=== PATIENT | male | born 1965 | race Asian ===

== ENCOUNTER 2018-12-15 05:19 | Inpatient (IN) ==
--- NOTE | 2018-11-21 16:48 | PAT Medication Instructions ---
Medication Instructions Date of Service November 21, 2018 Home Medications Medication Instructions Recorded oxycodone-acetaminophen [Percocet] 1 tab PO Q4H PRN #30 tab 05/18/18 etanercept 1 dose SUBCUT . WEDNESDAY sulindac 200 mg PO BID PRN oxycodone-acetaminophen [Percocet] 1 tab PO Q4H PRN ASK your surgeon for instructions sulindac 200 mg PO BID PRN ASK your prescriber and surgeon etanercept 1 dose SUBCUT . WEDNESDAY Take morning of surgery With a small sip of water, OTHERWISE NOTHING TO EAT OR DRINK AFTER MIDNIGHT: oxycodone-acetaminophen [Percocet] 1 tab PO Q4H PRN (if needed, may be taken up to four hours before surgery) Other Notes If you have any questions please call us at [phone] or [phone] or [phone] or [phone]
--- NOTE | 2018-11-22 14:26 | Anesthesiology Consultation ---
Date of Service November 22, 2018 Assessment & Plan (1) Encounter for pre-operative examination: Pending surgeon ordered PCP clearance. *Pt with ankylosing spondylitits, may be difficult spinal. Spinal vs GA discussed with patient at [facility]. Chart Review Chart Review: Acceptable Risk for Surgery (pending surgeon-ordered PCP clearance 11/23) and Patient seen in Pre Admission Testing Teaching & Discussion Instructed NPO after midnight before surgery, except medications with 15 cc of water. Medication instructions provided according to the [facility] guidelines. History Surgery Operation Date: 12/15/18 07:15 Proposed Procedures p Right Total Hip Arthroplasty - Dario Pastrana MD Height/Weight Height: 5 ft 6 in Weight: 67 kg Allergies Allergy/AdvReac Type Severity Reaction Status Date / Time No Known Allergies Allergy Unverified 11/18/18 14:51 Medications Home Medications Medication Instructions Recorded Confirmed Last Taken etanercept 1 dose SUBCUT . Wednesday05/17/18 11/18/18 05/13/18 sulindac 200 mg PO BID PRN 05/17/18 11/18/18 05/07/18 oxycodone-acetaminophen [Percocet] 1 tab PO Q4H PRN #30 tab 05/18/18 11/18/18 Unknown Past Medical History Medical History Ankylosing spondylitis Dr Hilario. Anxiety DJD (degenerative joint disease), multiple sites Depression Osteoarthritis Exercise / Class Metabolic Activity II 4-5 Yardwork/Stairs/Walk up hill (Limited by hip pain currently, but denies SOB/CP with 1 FOS) Past Surgical History Surgical History H/O total hip arthroplasty LEFT History of colonoscopy History of surgery on right wrist Past Anesthesia History No Hx of Anesthesia Complications and No Family Hx of Anesthesia Complications S/P ORIF R radial/ulnar fx 05/18/18 = LMA #5, atraumatic x 1 attempt. History of PONV No Hx of PONV and No Hx of Motion Sickness Social History Smoking Status: Former smoker tobacco type: cigarettes Do You Dip or Chew Tobacco: No Smoking End Date: QUIT 20 YEARS AGO Hx Alcohol Use: Yes Alcohol type: beer and wine alcohol intake frequency: a few times a month Hx Substance Use: No substance use type: does not use Review of Systems Pt denies any recent chest pain, shortness of breath, palpitations, cough, fever or URI. Physical Exam Vital Signs BP: 112/71 P: 64bpm SPO2: 97% RA T: 97.5 F R: 12 ENMT Mouth: no dental restorations, no chipped teeth and no loose teeth Thyromental Distance: > or= 3.5 Finger Breadths (4) Mallampati Class: I Neck normal visual inspection and + limited neck extension (very limited) Respiratory normal respiratory effort Auscultation: lungs clear to auscultation bilaterally Cardiovascular Rate/Rhythm: regular rate and regular rhythm Heart Sounds: no murmur Extremities: no edema Testing Laboratory Results 11/22/18 14:36 11/22/18 14:36 PT 10.7 Seconds (9.0-12.0) 11/22/18 14:36 INR 1.0 (0.9-1.1) 11/22/18 14:36 APTT 30.9 Seconds (21.0-31.0) 11/22/18 14:36 Urine Color Yellow 11/22/18 14:36 Urine Appearance Clear (Clear) 11/22/18 14:36 Urine pH 6.0 (4.5-7.5) 11/22/18 14:36 Ur Specific Sylvester 1.023 (1.000-1.030) 11/22/18 14:36 Urine Protein Negative (Negative) 11/22/18 14:36 Urine Glucose (UA) 1+ (Negative) H 11/22/18 14:36 Urine Ketones Negative (Negative) 11/22/18 14:36 Urine Nitrite Negative (Negative) 11/22/18 14:36 Ur Leukocyte Esterase Negative (Negative) 11/22/18 14:36 Blood Type A Positive 11/22/18 14:36 Antibody Screen NEGATIVE 11/22/18 14:36 11/22/18 14:36 Urine Culture - Final Urine,Clean Catch No growth - less than 1,000 colonies/mL. Electrocardiogram Date: 05/16/18 Findings: + NSR @ (87bpm) Chest X-Ray Date: 05/18/18 Findings: + NAD FINDINGS: The patient appears mildly hyperinflated. The heart is at the upper limits of normal in size. There is no failure. There is no focal pulmonary consolidation. There are no pleural effusions. There is a minor spinal scoliosis with possible ankylosis. Arthritic changes are present within the shoulders.
[2018-11-22 15:05] LABS: Basophils # (auto) 0.02 K/uL (0-0.2); Basophils % (auto) 0.4 %; Eosinophils # (auto) 0.13 K/uL (0-0.5); Eosinophils % (auto) 2.4 %; Hemoglobin 13.2 g/dL (14.0-18.0); Immature Granulocytes # (auto) 0.01 K/uL (0.00-0.02); Immature Granulocytes % (auto) 0.2 %; Lymphocytes # (auto) 1.47 K/uL (1.2-3.4); Mean Corpuscular Hemoglobin 29.1 pg (25-34); Mean Corpuscular Volume 88.3 fL (80-100); Mean Platelet Volume 9.2 fL (7.4-10.4); Monocytes # (auto) 0.46 K/uL (0.11-0.59); Monocytes % (auto) 8.5 %; Neutrophils # (auto) 3.35 K/uL (1.4-6.5); Neutrophils % (auto) 61.5 %; Platelet Count 245 K/uL (130-400); RDW Coefficient of Variation 12.5 % (11.5-14.5); RDW Standard Deviation 40.2 fL (36.4-46.3); Red Blood Count 4.53 M/uL (4.7-6.1); White Blood Count 5.44 K/uL (4.8-10.8)
[2018-11-22 15:06] LABS: Appearance Urine Clear (Clear); Bilirubin Urine Negative (Negative); Blood Urine Negative (Negative); Color Urine Yellow; Glucose Urine UA 1+ (Negative); Ketones Urine Negative (Negative); Leukocyte Esterase Urine Negative (Negative); Nitrite Urine Negative (Negative); Protein Urine Negative (Negative); Specific Gravity Urine 1.023 (1.000-1.030); Urobilinogen Urine Negative (Negative)
[2018-11-22 15:16] LABS: Partial Thromboplastin Ratio 1.1; Partial Thromboplastin Time 30.9 Seconds (21.0-31.0); Prothrombin Time 10.7 Seconds (9.0-12.0)
[2018-11-22 16:11] LABS: Albumin Level 3.6 gm/dl (3.4-5.0); BUN Creatinine Ratio 18.9 (10-20); Calcium 9.1 mg/dl (8.5-10.1); Creatinine Clr Calc Pharmacy 80.2 ml/min; Est GFR (African American) 104.8; Est GFR (Non-African American) 90.4; Potassium 3.7 mmol/L (3.5-5.1)
[2018-11-22 16:14] LABS: Bilirubin,Total 0.4 mg/dl (0.2-1); Globulin 3.7 gm/dl (2.5-4.0); Total Protein 7.3 gm/dl (6.4-8.2)
--- NOTE | 2018-11-23 14:19 | History & Physical Report ---
Date of Service November 23, 2018 Assessment & Plan (1) Primary localized osteoarthrosis of right hip: DIAGNOSIS: Right hip osteoarthritis. PROCEDURE: Right total hip arthroplasty. PLAN: The patient is scheduled to undergo this procedure with Dr. Dario Pastrana at the [facility] as an inpatient on 12/15/2018. Risks and complications of the procedure such as infection, bleeding, pain, scarring, nerve and blood vessel damage, weakness, wound problems, stiffness, incomplete relief of symptoms, hardware failure, hardware loosening, wear, fracture, tendon or ligament injury, dislocation, leg length inequality, blood clots, embolism, heart attack, stroke and were explained to the patient at his visit today by Dr. Pastrana. Informed consent to perform the procedure was obtained. We will also need to obtain preoperative medical clearance from the patient's primary care provider along with a CBC with differential, complete metabolic panel, PT, INR, blood type and screen, urinalysis, urine culture, EKG, hemoglobin A1c and a nasal culture for MRSA. The patient states he will obtain this necessary testing prior to his preanesthesia appointment at the hospital this afternoon. The patient was advised he will be prescribed a narcotic pain medication along with an anti-inflammatory medication upon discharge from the hospital. I also instructed him that we will have him on a baby aspirin twice daily for 30 days postoperatively for DVT prophylaxis and recommend the use of extra strength Tylenol in conjunction with the opioid analgesic that he will be prescribed. PDMP was checked and no red flags were raised that would prevent us from prescribing this medication. The patient was provided with an order to obtain a walker during today's visit. I also instructed him about purchasing a hip kit from either [employer], [employer] or online from [employer]. Advised him that he will often sleep with an abduction pillow for 6 weeks postoperatively to prevent any type of injury, dislocation to the surgical hip. The patient will also use PAUL stockings in combination with the aspirin for DVT prophylaxis. He states that he will most likely obtain in-home therapy for the first 2 weeks postoperatively and I advised him that I will provide him an order for outpatient physical therapy with rehab protocol at his 2-week followup with myself. The patient was also given information about lectures offered by [facility] in regards to joint replacement surgery. I have reeducated him about the use of antibiotics post-surgically before dental appointments. I also went over the discharge planning instructions and the hip arthroplasty packet. The patient states that he does not need a handicap placard paperwork because he already has one for his vehicle. The patient is very appreciative of the care he received in our clinic today, verbalized understanding of all information provided and states if he has questions or concerns prior to his procedure, he will contact the clinic accordingly. History of Present Illness Chief Complaint: CHIEF COMPLAINT: Right hip pain. Primary Care Provider: NO PCP HISTORY OF PRESENT ILLNESS: This 53-year-old male presents to clinic today for his preoperative history and physical. The patient complains of persistent right hip pain that has been ongoing for the past few years. The patient states that it is affecting his activities of daily life. The pain increases with standing. He denies any injury to the hip. He states he did have a left total hip arthroplasty performed in [place] approximately 8 years ago. He feels that it may have something to do with his gait abnormality due to having severe ankylosing spondylitis affecting his spine. The patient denies any numbness or tingling in the right lower extremity, but states that his range of motion is significantly limited. PAST SURGICAL HISTORY: Right total hip arthroplasty, right wrist open reduction internal fixation. PAST MEDICAL HISTORY: Ankylosing spondylitis, anxiety, depression, spine and neck and back problems. FAMILY HISTORY: Noncontributory. ALLERGIES: The patient has no known drug allergies. CURRENT MEDICATIONS USED: Enbrel prefilled syringe 50 mg per mL subcutaneous solution 1 mL subcutaneously every 7 days and sulindac 200 mg oral tablet 1 tab twice daily as needed for arthritis. SOCIAL HISTORY: The patient states that he was a pack per day smoker for 10 years but quit 20 years ago. He states that he consumes between 3 and 4 alcoholic beverages per week, but denies any illicit drug use. Allergies Allergy/AdvReac Type Severity Reaction Status Date / Time No Known Allergies Allergy Unverified 11/18/18 14:51 Home Medications Home Medications Medication Instructions Recorded Confirmed Type etanercept 1 dose SUBCUT . Wednesday05/17/18 11/18/18 History sulindac 200 mg PO BID PRN 05/17/18 11/18/18 History oxycodone-acetaminophen [Percocet] 1 tab PO Q4H PRN #30 tab 05/18/18 11/18/18 Rx Past Med/Surg History Medical History Ankylosing spondylitis Dr Hilario. Anxiety DJD (degenerative joint disease), multiple sites Depression Osteoarthritis Surgical History H/O total hip arthroplasty LEFT History of colonoscopy History of surgery on right wrist Social History Preferred Language: Slovenian Communication Ability: Effective Aquatic Physiotherapist Required: No Beliefs That Will Affect Care: None Current Living Situation: Family Feels Safe at Home: Yes Smoking Status: Former smoker Tobacco Type: cigarettes ; Second Hand Exposure: Yes ; Hx Alcohol Use: Yes Alcohol type: beer and wine Hx Substance Use: No Review of Systems All systems reviewed & are unremarkable except as noted in HPI & below Physical Exam Physical Exam: PHYSICAL EXAMINATION: Skin: The patient's skin is normal in appearance. No skin lesions or discharge. Eyes: Pupils are equal and react to light and accommodating. Extraocular movements are intact. Throat: Posterior pharynx is clear with absence of edema, erythema or exudate. Cardiovascular exam: The patient has a regular rate and rhythm, no murmurs or gallops appreciated. Lungs: Auscultation of lung gillespie reveals clear breath sounds throughout with no wheezing or rhonchi. Abdomen is nonobese, nondistended, nontender with normoactive bowel sounds. Extremities: Right hip flexion is 95 degrees. At 90 degrees of flexion, the patient is able to internally rotate to 5 degrees and externally rotate to 40 degrees. Stinchfield test and George's tests are both positive. DANIAL and FADIR tests are positive. The patient has some crepitation with range of motion. Tenderness over the anterior groin. Otherwise, he is neurovascularly intact in the right lower extremity. Neurological exam: Cranial nerves 2-12 are intact with no motor or sensory deficit. Psychological/general exam: The patient is alert and oriented x3 with proper grooming and hygiene. Results & Data Laboratory Results Laboratory Results - last 48 hr 11/22/18 11/22/18 11/22/18 14:36 14:36 14:36 WBC 5.44 RBC 4.53 L Hgb 13.2 L Hct 40.0 L MCV 88.3 MCH 29.1 MCHC 33.0 RDW Std Deviation 40.2 RDW Coeff of Flakita 12.5 Plt Count 245 MPV 9.2 Immature Gran % (Auto) 0.2 Neut % (Auto) 61.5 Lymph % (Auto) 27.0 Marshall % (Auto) 8.5 Eos % (Auto) 2.4 Baso % (Auto) 0.4 Immature Gran # (Auto) 0.01 Neut # (Auto) 3.35 Lymph # (Auto) 1.47 Marshall # (Auto) 0.46 Eos # (Auto) 0.13 Baso # (Auto) 0.02 PT 10.7 INR 1.0 APTT 30.9 PTT Ratio 1.1 Sodium 141 Potassium 3.7 Chloride 107 Carbon Dioxide 29 Anion Gap 5.0 BUN 18 Creatinine 0.95 Est Cr Clr Drug Dosing 80.2 Est GFR ( Amer) 104.8 Est GFR (Non-Af Amer) 90.4 BUN/Creatinine Ratio 18.9 Glucose 109 H Calcium 9.1 Total Bilirubin 0.4 AST 12 L ALT 23 Alkaline Phosphatase 93 Total Protein 7.3 Albumin 3.6 Globulin 3.7 Albumin/Globulin Ratio 1.0 Urine Color Urine Appearance Urine pH Ur Specific Keiser Urine Protein Urine Glucose (UA) Urine Ketones Urine Blood Urine Nitrite Urine Bilirubin Urine Urobilinogen Ur Leukocyte Esterase Nasal Screen MRSA (PCR) Blood Type Antibody Screen 11/22/18 11/22/18 11/22/18 14:36 14:36 14:36 WBC RBC Hgb Hct MCV MCH MCHC RDW Std Deviation RDW Coeff of Flakita Plt Count MPV Immature Gran % (Auto) Neut % (Auto) Lymph % (Auto) Marshall % (Auto) Eos % (Auto) Baso % (Auto) Immature Gran # (Auto) Neut # (Auto) Lymph # (Auto) Marshall # (Auto) Eos # (Auto) Baso # (Auto) PT INR APTT PTT Ratio Sodium Potassium Chloride Carbon Dioxide Anion Gap BUN Creatinine Est Cr Clr Drug Dosing Est GFR ( Amer) Est GFR (Non-Af Amer) BUN/Creatinine Ratio Glucose Calcium Total Bilirubin AST ALT Alkaline Phosphatase Total Protein Albumin Globulin Albumin/Globulin Ratio Urine Color Yellow Urine Appearance Clear Urine pH 6.0 Ur Specific Keiser 1.023 Urine Protein Negative Urine Glucose (UA) 1+ H Urine Ketones Negative Urine Blood Negative Urine Nitrite Negative Urine Bilirubin Negative Urine Urobilinogen Negative Ur Leukocyte Esterase Negative Nasal Screen MRSA (PCR) Negative Blood Type A Positive Antibody Screen NEGATIVE
[2018-12-15] MEDS ORDERED: SCOPOLAMINE 1.5 MG TDSY TD SCH (06:00)
[2018-12-15] MEDS ORDERED: LR 60ML/HR IV SCH (06:00)
[2018-12-15] MEDS ORDERED: ACETAMINOPHEN 500 MG TAB PO SCH (06:00)
[2018-12-15] MEDS ORDERED: ROPIVACAINE 0.5% HCL/PF 150 MG, BUPIVACAINE 0.5% MPF 30 ML, EPINEPHrine 0.15 MG, Ketoro... INFIL SCH (06:00)
[2018-12-15] MEDS ORDERED: FAMOTIDINE 20 MG TAB PO SCH (06:00)
[2018-12-15] MEDS ORDERED: dexAMETHasone 4 MG TAB PO SCH (06:00)
[2018-12-15] MEDS ORDERED: TRANEXAMIC ACID 1,000 MG **IV Pre-op IV SCH (06:00)
[2018-12-15] MEDS ORDERED: CeleBREX 200 MG CAP PO SCH (06:00)
[2018-12-15] MEDS ORDERED: TRAMADOL HCL 50 MG TABLET PO SCH (06:00)
[2018-12-15] MEDS ORDERED: CEFAZOLIN 2000MG 2,000 MG/15 ML SYR IV SCH (06:00)
[2018-12-15] MEDS ORDERED: LR 500ML BOLUS, THEN 15ML/HR IV SCH (06:00)
[2018-12-15] MEDS ORDERED: METOCLOPRAMIDE HCL 10 MG TABLET PO SCH (06:00)
[2018-12-15] MEDS ORDERED: BUPIVACAINE 0.5 % 5 MG/1 ML PF 10ML VIAL ONE (06:29)
[2018-12-15] MEDS ORDERED: TRANEXAMIC ACID 1,000 MG **IV Intra-op IV SCH (06:30)
--- NOTE | 2018-12-15 06:39 | History & Physical Bridge Note ---
Date of Service December 15, 2018 History & Physical Bridge Note I have examined the patient, reviewed the History & Physical and in the interval since the performance of the History & Physical I have noted the following changes of clinical significance: no changes noted
[2018-12-15] MEDS ORDERED: MIDAZOLAM HCL 1 MG/ML 2ML VIAL ONE ×2 (06:40→06:52)
[2018-12-15] MEDS ORDERED: fentaNYL citrate 100 MCG/2 ML VIAL ONE ×2 (06:40→06:52)
[2018-12-15] MEDS ORDERED: ORTHO JOINT ANESTHETIC ONE (06:55)
[2018-12-15] MEDS ORDERED: CISATRACURIUM BESYLATE IV SOLN 2 MG/ML 10 ML VIAL IV ONE (07:46)
[2018-12-15] MEDS ORDERED: PROPOFOL IV EMULSION 10 MG/ML 20 ML VIAL IV ONE (07:46)
[2018-12-15] MEDS ORDERED: LIDOCAINE HCL 2% 2 ML VIAL/AMP(20MG/ML) INFIL ONE (07:46)
[2018-12-15] MEDS ORDERED: SUCCINYLCHOLINE CHLORIDE 20 MG/ML 10 ML VIAL ONE (08:10)
[2018-12-15] MEDS ORDERED: GLYCOPYRROLATE 0.2 MG/ML VIAL ONE (08:11)
[2018-12-15] MEDS ORDERED: NEOSTIGMINE METHYLSULFATE 5 MG/5 ML SYR ONE (08:11)
[2018-12-15] MEDS ORDERED: ePHEDrine sulfate 50 MG/ML AMP IV PRN (08:53)
[2018-12-15] MEDS ORDERED: ATROPINE SULFATE 0.1 MG/ML 10ML SYR IV PRN (08:53)
[2018-12-15] MEDS ORDERED: HYDROmorphone INJ 0.5 MG/0.5 ML SYR IV PRN ×2 (08:54→09:26)
[2018-12-15] MEDS ORDERED: TAMSULOSIN HCL 0.4 MG CAP PO PRN (09:26)
[2018-12-15] MEDS ORDERED: ONDANSETRON INJ 2 MG/ML 2 ML VIAL IV PRN (09:26)
[2018-12-15] MEDS ORDERED: DiphenhydrAMINE HCL 50 MG/ML VIAL IV PRN (09:26)
[2018-12-15] MEDS ORDERED: MAGNESIUM HYDROXIDE SUSP 30 ML UDC PO PRN (09:26)
[2018-12-15] MEDS ORDERED: OXYCODONE HCL IR 5 MG TAB (IMMEDIATE RELEASE) PO PRN (09:26)
[2018-12-15] MEDS ORDERED: METOCLOPRAMIDE HCL INJ 5 MG/ML 2 ML VIAL IV PRN (09:26)
[2018-12-15] MEDS ORDERED: NALOXONE HCL 0.4 MG/1 ML VIAL/CARP IV PRN (09:26)
[2018-12-15] MEDS ORDERED: ALUMINUM/MAGNESIUM SUSP 30 ML UDC PO PRN (09:26)
[2018-12-15] MEDS ORDERED: BISACODYL 10 MG SUPP PR PRN (09:26)
--- NOTE | 2018-12-15 09:26 | Operative Report ---
Post Operative Report Pre & Post Diagnosis Operation Date: 12/15/18 07:15 Pre-Op Diagnosis: Right Hip Arthritis Post-Op Diagnosis: Right Hip Arthritis Procedure Operation Date: 12/15/18 07:15 Actual Procedures p Right Total Hip Arthroplasty(Right) - Dario Pastrana MD Surgeon Dario Pastrana MD Over Hauler Helper MD Rudi; PADMINI Juan PA-C Estimated Blood Loss 250 Findings Consistent with Post-Op Diagnosis Specimens As per the Op notes Complications none Disposition Accompanied Patient To Recovery: Yes Disposition: Recovery Room Indications 53/M with chronic R hip pain and end stage arthritis of hip joint Description of Procedure Lateral decubitus position, standard prep and drape, time out for patient safety, uncemented THR right hip through Carvalho's approach. Please see Dr Pastrana's procedure notes for specific details. I was present throughtout the case, assisted wound closure and transferred the patient to PACU in stable condition. I attest to the content of the Intraoperative Record and any orders documented therein. Any exceptions are noted below.
--- NOTE | 2018-12-15 09:27 | Operative Report ---
Post Operative Report Pre & Post Diagnosis Operation Date: 12/15/18 07:15 Pre-Op Diagnosis: Right Hip Arthritis Post-Op Diagnosis: Right Hip Arthritis Procedure Operation Date: 12/15/18 07:15 Actual Procedures p Right Total Hip Arthroplasty(Right) - Dario Pastrana MD Surgeon Dario Pastrana MD Opto Mechanical Technician Se Grijalva MD; Rach Juan PA-C Estimated Blood Loss 250 Findings Consistent with Post-Op Diagnosis Specimens femoral head Complications none Disposition Accompanied Patient To Recovery: Yes Disposition: Recovery Room Description of Procedure I was present during the entire procedure assisting with wound closure and dressing application. Please see Dr. Pastrana procedure note for specifics of the case. I attest to the content of the Intraoperative Record and any orders documented therein. Any exceptions are noted below.
--- NOTE | 2018-12-15 09:28 | Operative Report ---
DATE OF OPERATION: 12/15/2018 PREOPERATIVE DIAGNOSIS: Right hip osteoarthritis in the setting of ankylosing spondylitis. POSTOPERATIVE DIAGNOSIS: Right hip osteoarthritis in the setting of ankylosing spondylitis. OPERATIONS PERFORMED: Right total hip arthroplasty. A 22 modifier should be added due to the increased complexity of the case secondary to ankylosing spondylitis and extensive acetabular osteophytes SURGEON: Dario Pastrana MD PRESS TENDER: Bernadine Juan PA-C and Se Grijalva MD ESTIMATED BLOOD LOSS: 250 mL. IV FLUIDS: 2000 mL crystalloid. SPECIMENS: Femoral head. COMPLICATIONS: None. IMPLANTS: 1. DePuy [place] Gription 58 mm outer diameter cup with a 6.5 x 25 mm cancellous bone screw. 2. DePuy [place] Ultrex polyethylene liner for a 36-mm femoral head. 3. DePuy [place] size 7 high offset stem. 4. Biolox delta ceramic femoral head, 36 mm outer diameter, +1.5 offset. INDICATIONS: Mr. Andion is a 53-year-old gentleman with a medical history significant for ankylosing spondylitis. He underwent a left total hip arthroplasty when he lived in [place] 8 years ago with a good result. He is now having right hip pain that has been refractory to conservative management. I had a long discussion with him about the risks and benefits of surgery, alternatives to surgery and expected outcomes. After reviewing all these, he elected to proceed with surgery. All questions were answered. Informed consent was signed. OPERATIVE FINDINGS: The patient had severe osteoarthritis of the femoral head and acetabulum with extensive osteophyte formation of the rim of the acetabulum which were removed. A total hip arthroplasty was performed through a posterior approach using a ceramic on polyethylene bearing surface. DESCRIPTION OF OPERATION: The patient was identified in the preoperative holding area where his surgical site was marked. He was not a candidate for a spinal because of his ankylosing spondylitis and was therefore brought back to the main operating room, where he was placed on the operating room table and general anesthesia was administered. He was moved in lateral decubitus position. All bony prominences were padded. Perioperative antibiotics were administered. He was prepped and draped in normal sterile fashion. Prior to incision, a multidisciplinary timeout was called. All in the room were in agreement. We began by making a 12 cm long incision for a posterior approach to the hip. We dissected through subcutaneous tissues to the level of fascia. Fascia was incised in line with the incision. Charnley bow was placed. Trochanteric bursitis was excised. The quadratus femoris, piriformis and short external rotators of the hip were dissected subperiosteally off the posterior aspect of the femur to expose the capsule. A box cut was made in the capsule. The femoral head was dislocated. We measured his offset from the lesser trochanter to center femoral head at 55 mm. We then made our femoral neck cut at 10 mm, which was our preoperative template. We then exposed the acetabulum. The labrum was sharply excised with a knife. Notably, this was actually sitting about 1 cm inside of the ossified acetabular rim. We then attempted to expose the cotyloid fossa, but he had severe medial osteophyte formation that prevented this. We therefore started with our medializing reamer. This was a size 50. This removed our medial osteophyte and exposed our cotyloid fossa which was then removed with electrocautery. Next, we reamed up all the way to a size 58 mm cup. This gave us good bleeding bony surface. We then irrigated out the cup and opened up our 58 mm [place] Gription cup. This was impacted down into position with 25 degrees of anteversion and 40 degrees of lateral opening. A single cancellous bone screw was placed up into the ilium, 25 mm in length. Excellent fixation was obtained. Next, the polyethylene liner was placed down into the cup for a 36-mm femoral head and was impacted into position. We checked to ensure the locking mechanism engaged, which it had. At this point, we spent the next 10 or 15 minutes removing osteophytes along the margin of the acetabular rim using a curved osteotome and rongeur. Again, these were extensive involving the superior, anterior, posterior and inferior acetabular rim. Once these were removed, there was no chance of bony impingement on the femoral neck. Next, the femoral neck was exposed. The lateral capsule was excised and the freemanie cutter was used followed by the intramedullary canal finder. He was reamed up to a size 7 reamer. We then broached him up to a size 7 which gave us a good torsional stability. We trialled him with a high offset neck and +1.5 mm head. This reproduced his offset, measured at approximately 56 mm. We relocated the hip and his shuck test was about 1-2 mm, which was appropriate. His leg lengths were symmetric. He had no impingement in extension and external rotation. He was stable in the sleeper position. At 90 degrees of hip flexion, he could be internally rotated 55 degrees before levering out of the cup. I was very happy with this stability exam. Therefore, the trial components were removed from the femur. The canal was irrigated and dried. We then opened up the real size 7 [place] high offset stem and impacted this into position. It sat at approximately the same level as the broach and therefore the +1.5 mm ceramic femoral head was opened up and tapped down on to the trunnion, which had been cleaned and dried. The hip was then atraumatically reduced. Betadine was used to irrigate out the wound and was allowed to sit for 3 minutes. We injected our periarticular injection cocktail and then repaired the capsule, piriformis and short external rotators using #2 Vicryl through 2 bone tunnels in the posterior aspect of the greater trochanter. The Charnley was removed. The fascia was run with a looped #1 PDS. Deep subcutaneous layers were closed with a running #1 PDS. Dermal layer was closed with 2-0 Vicryl. A ZipLine was used for the skin. A Silverlon dressing was then placed. The patient was then rolled supine, placed in an abduction pillow, awoken from anesthesia and transferred to recovery room in stable condition. POSTOPERATIVE COURSE: The patient will be admitted overnight for pain control and monitoring. We will check his H and H in the morning. He will need to be on posterior hip precautions. He will be on aspirin for DVT prophylaxis. At the recommendation of his pamphlet distributor, his Enbrel was held for 2 weeks before the procedure and will be held for 2 weeks after the surgery to minimize wound healing complications. I attest to the content of the Intraoperative Record and any orders documented therein. Any exceptions are noted below. CANDY
--- NOTE | 2018-12-15 09:30 | Post Operative Brief Note ---
Immediate Post Op Note v1 Date of Surgery December 15, 2018 Pre & Post Diagnosis Operation Date: 12/15/18 07:15 Pre-Op Diagnosis: Right Hip Arthritis Post-Op Diagnosis: Right Hip Arthritis Procedure Operation Date: 12/15/18 07:15 Actual Procedures p Right Total Hip Arthroplasty(Right) - Dario Pastrana MD Surgeon Dario Pastrana MD Fuel Attendant Se Grijalva MD; Rach Juan PA-C Estimated Blood Loss 250 Findings Consistent with Post-Op Diagnosis Fluids 2000 Anesthesia Type General Complications none Disposition Accompanied Patient To Recovery: No Disposition: Recovery Room
[2018-12-15] MEDS ORDERED: OXYCODONE/ACETAMINOPHEN 5mg/325mg TAB PO PRN (09:32)
[2018-12-15] MEDS ORDERED: SULINDAC 200 MG TAB PO PRN (09:32)
--- NOTE | 2018-12-15 10:00 | XRay Report ---
AP PELVIS, CROSSTABLE LATERAL RIGHT HIP History: Right total hip arthroplasty. Degenerative arthritis. Postop. FINDINGS: The patient is status post a right total hip arthroplasty. The hardware is intact. No fract ure or dislocation. Evidence for prior left total hip arthroplasty. IMPRESSION: Right total hip arthroplasty. No evidence for hardware complication Electronically signed by: Giovani Cano M.D. 12/15/2018 9:58 AM
--- NOTE | 2018-12-15 10:25 | Anesthesiology Progress Note ---
Date of Service December 15, 2018 Anesthesia Post Procedure Vital Signs Vital Signs: Temp Pulse Pulse Resp BP Pulse Ox 12/15/18 10:15 64 15 114/71 100 12/15/18 10:05 73 16 132/63 100 12/15/18 09:55 36.1 C L 68 17 119/74 100 12/15/18 09:45 36.1 C L 64 13 120/66 12/15/18 09:39 36.1 C L 61 12 123/74 12/15/18 05:52 36.7 C 78 18 118/78 96 Pain Intensity Right Hip: Pain Intensity: 2 Transfer of Care Handoff Completed per policy Notes Mental Status: alert / awake / arousable Patient Amnestic to Procedure: Yes Nausea / Vomiting: adequately controlled Pain: adequately controlled Airway Patency, RR, SpO2: stable & adequate BP & HR: stable & adequate Hydration State: stable & adequate Anesthetic Complications: no major complications apparent
[2018-12-15] MEDS: KETOROLAC 30 MG/ML VIAL IV SCH ×2 (12:50→18:30)
[2018-12-15] MEDS: CEFAZOLIN 2000MG 2,000 MG/15 ML SYR IV SCH ×2 (14:50→22:37)
[2018-12-15] MEDS: ACETAMINOPHEN 500 MG TAB PO SCH ×2 (14:50→21:31)
[2018-12-15] MEDS: SODIUM CHLORIDE 0.9% 1000ML 1,000 ML IV SCH (15:11)
[2018-12-15] MEDS ORDERED: TRANEXAMIC ACID 1,000 MG in 0.9 % SODIUM CHLORIDE 100 ML IV SCH (15:26)
[2018-12-15] MEDS: CHECK SCOPOLAMINE PATCH PLACEMENT SCH (18:30)
[2018-12-15] MEDS ORDERED: SENNA 8.6 MG TAB PO SCH (21:00)
[2018-12-15] MEDS: DOCUSATE SODIUM 100 MG CAP PO SCH (21:32)
[2018-12-15] MEDS: ASPIRIN 81 MG ECTAB PO SCH (21:33)
[2018-12-16] MEDS: KETOROLAC 30 MG/ML VIAL IV SCH ×2 (00:06→05:59)
[2018-12-16] MEDS: SODIUM CHLORIDE 0.9% 1000ML 1,000 ML IV SCH (00:07)
[2018-12-16] MEDS: CHECK SCOPOLAMINE PATCH PLACEMENT SCH (00:07)
[2018-12-16] MEDS: ACETAMINOPHEN 500 MG TAB PO SCH (05:59)
[2018-12-16 07:03] LABS: Basophils # (auto) 0.01 K/uL (0-0.2); Basophils % (auto) 0.1 %; Hematocrit (blood only) 32.1 % (42-52); Hemoglobin 10.5 g/dL (14.0-18.0); Immature Granulocytes # (auto) 0.04 K/uL (0.00-0.02); Immature Granulocytes % (auto) 0.3 %; Lymphocytes # (auto) 1.13 K/uL (1.2-3.4); Lymphocytes % (auto) 7.5 %; Mean Corpuscular Hemoglobin 28.2 pg (25-34); Mean Corpuscular Hgb Conc 32.7 g/dL (32-36); Mean Corpuscular Volume 86.3 fL (80-100); Monocytes # (auto) 1.15 K/uL (0.11-0.59); Monocytes % (auto) 7.6 %; Neutrophils # (auto) 12.77 K/uL (1.4-6.5); Neutrophils % (auto) 84.5 %; Platelet Count 213 K/uL (130-400); RDW Coefficient of Variation 12.6 % (11.5-14.5); RDW Standard Deviation 39.9 fL (36.4-46.3); Red Blood Count 3.72 M/uL (4.7-6.1)
[2018-12-16 07:41] LABS: Creatinine Clr Calc Pharmacy 74.7 ml/min; Est GFR (African American) 96.1; Est GFR (Non-African American) 82.9
[2018-12-16] MEDS ORDERED: dexAMETHasone 4 MG TAB PO SCH (08:00)
--- NOTE | 2018-12-16 08:05 | Anesthesiology Progress Note ---
Date of Service December 16, 2018 Anesthesia Post Procedure Vital Signs Vital Signs: Temp Pulse Pulse Resp BP Pulse Ox 12/16/18 07:26 36.5 C 63 18 100/62 98 12/16/18 03:50 36.4 C L 82 18 98/60 L 98 12/15/18 23:10 36.6 C 71 16 92/54 L 98 12/15/18 19:55 36.9 C 71 18 94/54 L 98 12/15/18 15:24 36.6 C 71 16 103/65 95 12/15/18 13:51 80 18 119/69 97 12/15/18 12:59 79 18 104/67 95 12/15/18 11:58 77 18 110/68 96 12/15/18 11:30 74 18 112/69 95 12/15/18 11:00 36.5 C 66 14 106/69 100 12/15/18 10:45 36.4 C L 62 14 105/65 98 12/15/18 10:35 36.4 C L 60 15 113/72 97 12/15/18 10:25 36.4 C L 61 14 119/73 100 12/15/18 10:15 64 15 114/71 100 12/15/18 10:05 73 16 132/63 100 12/15/18 09:55 36.1 C L 68 17 119/74 100 12/15/18 09:45 36.1 C L 64 13 120/66 100 12/15/18 09:39 36.1 C L 61 12 123/74 100 Pain Intensity Right Hip: Pain Intensity: 2 Notes Mental Status: alert / awake / arousable and participated in evaluation Patient Amnestic to Procedure: Yes Nausea / Vomiting: adequately controlled Pain: adequately controlled Airway Patency, RR, SpO2: stable & adequate BP & HR: stable & adequate Hydration State: stable & adequate Anesthetic Complications: no major complications apparent and Pt Satisfied with anesthetic care
[2018-12-16] MEDS: ASPIRIN 81 MG ECTAB PO SCH (08:14)
[2018-12-16] MEDS: DOCUSATE SODIUM 100 MG CAP PO SCH (08:15)
[2018-12-16] MEDS ORDERED: MULTIVITAMIN TAB PO SCH (09:00)
--- NOTE | 2018-12-16 11:14 | Orthopedic Progress Note ---
Date of Service December 16, 2018 Assessment & Plan (1) S/P total hip arthroplasty: Reviewed Total Hip precautions PT/OT this AM DVT prophy with Aspirin and TEDs Ice with EZ wrap Pain control with PO meds Abduction pillow use for 6 wks post op F/u at [facility] as previously scheduled With any questions call Subjective Patient is day 1 s/p Right total hip arthroplasty. Doing very well. Just finished PT/OT. Ambulating well with walker assistance. Minimal pain at incision site. Denies CP, SOB, nausea, vomiting, fever, chills, sweats or lethargy. Patient states that he will be ready to go home after lunch with in- home therapy. Review of Systems Review of Systems: All systems reviewed & are unremarkable except as noted in HPI & below Physical Exam Physical Exam: Right hip: dressing clean, dry and intact. Minimal TTP around incision site. Able to perform SLRT. Minimal pain with very light passive internal and external rotation. Calf soft and supple. NV intact in entire Rt LE. Minimal edema. No erythema, ecchymosis, warmth or deformity Results & Data Vital Signs (Past 12 Hours) Vital Signs Temp Pulse Resp BP Pulse Ox 12/16/18 10:49 36.3 C L 65 18 122/70 99 12/16/18 07:26 36.5 C 63 18 100/62 98 12/16/18 03:50 36.4 C L 82 18 98/60 L 98 12/15/18 23:10 36.6 C 71 16 92/54 L 98 Laboratory Results 12/16/18 12/16/18 Range/Units 06:51 06:51 WBC 15.10 H (4.8-10.8) K/uL RBC 3.72 L (4.7-6.1) M/uL Hgb 10.5 L (14.0-18.0) g/dL Hct 32.1 L (42-52) % MCV 86.3 (80-100) fL MCH 28.2 (25-34) pg MCHC 32.7 (32-36) g/dL RDW Std Deviation 39.9 (36.4-46.3) fL RDW Coeff of [place] 12.6 (11.5-14.5) % Plt Count 213 (130-400) K/uL MPV 9.0 (7.4-10.4) fL Immature Gran % (Auto) 0.3 % Neut % (Auto) 84.5 % Lymph % (Auto) 7.5 % [place] % (Auto) 7.6 % Eos % (Auto) 0.0 % Baso % (Auto) 0.1 % Immature Gran # (Auto) 0.04 H (0.00-0.02) K/uL Neut # (Auto) 12.77 H (1.4-6.5) K/uL Lymph # (Auto) 1.13 L (1.2-3.4) K/uL [place] # (Auto) 1.15 H (0.11-0.59) K/uL Eos # (Auto) 0.00 (0-0.5) K/uL Baso # (Auto) 0.01 (0-0.2) K/uL Sodium 141 (136-145) mmol/L Potassium 4.0 (3.5-5.1) mmol/L Chloride 109 H (98-107) mmol/L Carbon Dioxide 26 (21-32) mmol/L Anion Gap 6.0 (3-11) BUN 16 (7-18) mg/dl Creatinine 1.02 (0.6-1.4) mg/dl Est Cr Clr Drug Dosing 74.7 ml/min Est GFR ( Amer) 96.1 Est GFR (Non-Af Amer) 82.9 BUN/Creatinine Ratio 16.0 (10-20) Glucose 142 H (70-99) mg/dl Calcium 8.0 L (8.5-10.1) mg/dl
--- NOTE | 2018-12-16 11:44 | Discharge Summary ---
Date of Service December 16, 2018 Admission HPI Per Admitting Provider HISTORY OF PRESENT ILLNESS: This 53-year-old male presents to clinic today for his preoperative history and physical. The patient complains of persistent right hip pain that has been ongoing for the past few years. The patient states that it is affecting his activities of daily life. The pain increases with standing. He denies any injury to the hip. He states he did have a left total hip arthroplasty performed in [place] approximately 8 years ago. He feels that it may have something to do with his gait abnormality due to having severe ankylosing spondylitis affecting his spine. The patient denies any numbness or tingling in the right lower extremity, but states that his range of motion is significantly limited. PAST SURGICAL HISTORY: Right total hip arthroplasty, right wrist open reduction internal fixation. PAST MEDICAL HISTORY: Ankylosing spondylitis, anxiety, depression, spine and neck and back problems. FAMILY HISTORY: Noncontributory. ALLERGIES: The patient has no known drug allergies. CURRENT MEDICATIONS USED: Enbrel prefilled syringe 50 mg per mL subcutaneous solution 1 mL subcutaneously every 7 days and sulindac 200 mg oral tablet 1 tab twice daily as needed for arthritis. SOCIAL HISTORY: The patient states that he was a pack per day smoker for 10 years but quit 20 years ago. He states that he consumes between 3 and 4 alcoholic beverages per week, but denies any illicit drug use. Admission Exam Per Admitting Provider PHYSICAL EXAMINATION: Skin: The patient's skin is normal in appearance. No skin lesions or discharge. Eyes: Pupils are equal and react to light and accommodating. Extraocular movements are intact. Throat: Posterior pharynx is clear with absence of edema, erythema or exudate. Cardiovascular exam: The patient has a regular rate and rhythm, no murmurs or gallops appreciated. Lungs: Auscultation of lung gillespie reveals clear breath sounds throughout with no wheezing or rhonchi. Abdomen is nonobese, nondistended, nontender with normoactive bowel sounds. Extremities: Right hip flexion is 95 degrees. At 90 degrees of flexion, the patient is able to internally rotate to 5 degrees and externally rotate to 40 degrees. Stinchfield test and George's tests are both positive. DANIAL and FADIR tests are positive. The patient has some crepitation with range of motion. Tenderness over the anterior groin. Otherwise, he is neurovascularly intact in the right lower extremity. Neurological exam: Cranial nerves 2-12 are intact with no motor or sensory deficit. Psychological/general exam: The patient is alert and oriented x3 with proper grooming and hygiene. Principal Diagnosis Right Hip Osteoarthritis Discharge Exam Right hip: dressing clean, dry and intact. Minimal TTP around incision site. Able to perform SLRT. Minimal pain with very light passive internal and external rotation. Calf soft and supple. NV intact in entire Rt LE. Minimal edema. No erythema, ecchymosis, warmth or deformity Discharge Data Allergies Allergy/AdvReac Type Severity Reaction Status Date / Time No Known Allergies Allergy Unverified 12/15/18 05:49 Consultations 12/16/18 08:00 Consult Case Management - Discharge Planning Routine Procedures Performed Operation Date: 12/15/18 07:15 Actual Procedures p Right Total Hip Arthroplasty(Right) - Dario Pastrana MD Hospital Course (1) S/P total hip arthroplasty: Did very well overnight and with PT/OT This AM. Is ready to be discharged after lunch today. Will have [facility] come into his home for PT/OT. Reviewed Total Hip precautions PT/OT this AM DVT prophy with Aspirin and TEDs Ice with EZ wrap Pain control with PO meds Abduction pillow use for 6 wks post op F/u at [facility] as previously scheduled With any questions call Total Time Total Time Spent Total Time Spent (In Minutes): 20 Total Time Includes: Examination of the Patient, Discharge Planning and Medication Reconciliation Discharge Plan Discharge Items Patient Disposition: Home - Home Health Services Reason For Visit: Right Hip Arthritis Discharge Diagnosis: Right hip arthritis Condition: Good Discharge Goals: Decrease discomfort, Improve function and Increase independence Activity: As commented below Lifting: None Bathing: Keep incision dry Bathing Comment: May shower tomorrow Sexual Activity: Wait until after follow-up appointment Exercise/Sports: Wait until after follow-up appointment Driving/Machine Use Comment: No driving until cleared by Orthopaedic specialist Weightbearing Comment: As tolerated with walker assistance Non-emergency contact: Primary Care Provider Call non-emergency contact if: you have any medication questions, your pain is not controlled, your temperature is above 101.5, your wound has increased drainage and your wound pain has increased Follow-up/Referrals: PCP,NO [Primary Care Provider] - Diet: Regular Addtl Provider Instructions: Post-operative Instructions Dear Patient and Family/Friends, Before you are discharged from the hospital, it is important to know what to expect when you get home after surgery. To that end, we have created this sheet of discharge instructions which covers many commonly asked questions. Make sure you go through this sheet in its entirety with your nurse before you are discharged. Please note that we will go over the specifics of your surgery and recovery when you return for your first post-operative visit. Sincerely, Dr. Pastrana Medications You will be discharged with prescriptions for Oxycodone and Diclofenac Sodium. Take 1-2 tabs of Oxycodone every 4-6 hrs to control your initial post operative pain. The Diclofenac is also for pain and inflammation relief. Please take 1 tab after breakfast and 1 after dinner for the first 30 days post operatively. Also Please purchase Baby Aspirin (81 mg) and Extra Strength Tylenol. Take 2 baby Aspirin daily for 30 days post operatively. The Tylenol may be taken with every other dose of the Oxycodone and then every 8 hrs as needed for pain relief for the 30 day post operative period. Pain Expect to be in a fair amount of pain after surgery. Remember, our goal is not to eliminate your pain, but to make it tolerable. It is a good idea to stay ahead of your pain by taking the medications you were prescribed once you get home. Typically, the pain starts improving 3-7 days after surgery. You should start weaning off the narcotic pain medication (oxycodone, hydrocodone, hydromorphone, morphine) as soon as your pain improves. Please call our office if your pain is not adequately controlled. Ice Ice your operative site at least 5 times a day for 15-30 minutes at a time. Make sure you have a thin cloth between the ice or cooling unit and your skin to prevent olivarez bite. This is especially important if you received a nerve block. Continue icing your operative site for the first 5-7 days after surgery, then as needed. Diet/Nausea/Vomiting Start by drinking clear liquids and eating crackers. If you can tolerate this, then you may resume your normal diet. If you feel nauseated or vomit, take Zofran/ondansetron (if prescribed). Please call our office if you have intractable nausea or vomiting, or, if after hours, you may go to the Emergency Room for help. Constipation Constipation is a common side effect of narcotic pain medication. If you have not had a bowel movement within 2 days after surgery, we recommend purchasing an over the counter laxative such as Milk of Magnesia, Dulcolax, or Miralax from a local pharmacy, and taking it as instructed. Call our clinic if any questions. Slings and Braces If you were placed in a sling or brace, it must be worn at all times, including sleep. You may remove your sling or brace for physical therapy, home exercises, and showering. The length of time you will be in your brace and range of motion restrictions depends on what surgery you had; these details will be reviewed at your first post-operative appointment. Nerve block The anesthesia team sometimes places a nerve block to help with post-operative pain control. This results in significant numbness and inability to move the extremity. The nerve block usually wears off in 8-12 hours, but sometimes can last up to 24 hours. Please call our office if you are still unable to move your extremity after 24 hours, unless you received a pain pump to take home. Nerve blocks typically wear off quickly, so start taking pain medication as soon as you start feeling soreness near your surgical site. Weight bearing and Range of Motion. Do not bear any weight through your operative extremity immediately after surgery. If you had upper extremity surgery, do not lift anything with that arm. If you are in a knee brace, keep it locked in place until your follow-up. We will discuss your weight bearing, range of motion, and lifting restrictions in detail at your first post-operative appointment. Continuous Passive Motion (CPM) Machine If you were prescribed a CPM machine, it will start after your first post- operative appointment, at which time we will give you instructions on the range of motion settings and duration of treatment Physical therapy You will be given a prescription for physical therapy or occupational therapy at your first post-operative appointment. Typically, patients start therapy within 1 week of surgery Wound care and showering We will inspect your wound at your first post-operative visit, and may do a dressing change at that time. Most patients will be in a water-proof dressing that is removed 14 days after surgery. It is normal to see some dried blood on the dressing. Do not remove your dressing, paper strips or sutures yourself unless you are given permission. Showering is allowed the day after surgery. Do not scrub or remove any dressings. The wound should not be submerged underwater (i.e. in a bathtub or pool) until 4 weeks after surgery PAUL stockings If you were given white stockings, these are to be worn at all times except to shower (on both legs) for the first 2 weeks after surgery. Driving You may not drive while taking narcotic pain medication or while in a cast, splint, sling or brace. You, the patient, need to make the final determination about when you are safe to drive, however, the earliest you may consider driving after surgery is below: Hand/Wrist/Elbow Surgery: 3 days Shoulder Surgery: 2 weeks Hip,/Knee/Ankle Surgery: 4 weeks Fracture repair: 6 weeks Return to Work Your return to work depends on what surgery was done and what type of work you do. Please bring any paperwork your employer needs completed to your first post-operative visit. Also, bring a description of your job duties, as this helps us to understand what risks you may face at work. Travel Avoid long distance travel (greater than 1 hour) in airplanes and cars for the first 6 weeks after surgery. If you must travel, you need to have a Doppler ultrasound done before you travel to rule out a blood clot in your legs. Follow-up You should have a follow-up appointment already scheduled 1-2 days after surgery. If not, please contact our office to make this appointment before you leave the hospital. When to call the office It is normal to have swelling and bruising in the limb that was operated on. This will improve with time. It is also normal to have fevers for the first 2 days after surgery. Reasons you should call your doctor include: Uncontrolled pain; Nausea, vomiting, or constipation that does not improve with medication; Fevers over 101.5, chills, sweats; Drainage or bleeding from the wound; Foul odor; Spreading areas of redness; Any other concerns Prescriptions: New diclofenac sodium 75 mg tablet,delayed release (DR/EC) 75 mg PO Q12H PRN (Reason: pain) Qty: 60 RF: 1 oxycodone 5 mg tablet 5 mg PO Q6H PRN (Reason: pain) Qty: 30 RF: 0 Continued sulindac 200 mg tablet 200 mg PO BID PRN (Reason: Pain) RF: 0 etanercept 50 mg/mL (0.98 mL) pen injector 1 dose subcut . WEDNESDAY RF: 0 oxycodone-acetaminophen [Percocet] 5-325 mg Tablet 1 tab PO Q4H PRN (Reason: pain) Qty: 30 RF: 0 Stand-Alone Forms: [facility] Discharge Orders: Discharge Order (Routine); Ordered 12/16/18 Ordered By: Quan Juan Admission Data Admit Date/Time: 12/15/18 09:26 Attending Provider: Dario Pastrana Admit Provider: Dario Pastrana Primary Care Provider: PCP,NO Service: Surgical Services Other Interventions: Discharge Summary Assessment (RN) Last Done: 12/16/18 11:37 Pending Studies at Discharge: No
[2018-12-16] MEDS ORDERED: CeleBREX 200 MG CAP PO SCH (21:00)
== END 2018-12-16 13:50 | disposition home health service (06) | DRG 470 ==
LOC: ASU 05:19 → 3E 09:26